=== PATIENT | male | born 1995 | race African-American/Black ===

== ENCOUNTER 2018-07-04 11:54 | Emergency (ER) | payer MEDICAID ==
[~2018-07-04] VITALS: Ht 172.7 cm; Wt 63.6 kg
[~2018-07-04 11:54] MED LIST: MOTRIN 800800 MG/TAB PO; NO HOME MEDICATIONS; NORCO 325 MG-51 TAB PO
[2018-07-04 12:02] VITALS: BP 136/76; PULSE 61; TEMP 98.1
[2018-07-04] MEDS ORDERED: CEPHALEXIN500 M1 PO (12:58)
== END 2018-07-04 13:19 | disposition home or self-care (01) ==
LOC: COL.ER 11:54
DX: N63.0 Unspecified lump in unspecified breast (principal)